=== PATIENT | female | born 1975 | race Asian ===

== ENCOUNTER 2017-03-15 14:58 | Emergency (ER) | payer OTHER ==
[~2017-03-15] VITALS: Ht 162.6 cm; Wt 77.1 kg
[2017-03-15 15:03] VITALS: BP 125/80
[2017-03-15] MEDS ORDERED: LEVOTHYROXINE50 MCG PO (15:23)
--- NOTE | 2017-03-15 15:24 | ED UPPER/LOWER EXTREMITY COMPL ---
History of Present Illness General Chief Complaint: Plantar Puncture Wound Stated Complaint: BUDDY NAIL IN LFT FOOT Source: patient Exam Limitations: no limitations Vital Signs & Intake/Output Vital Signs & Intake/Output Vital Signs Date Time Temp Pulse Resp B/P B/P Pulse O2 O2 Flow FiO2 Mean Ox Delivery Rate 03/15 1503 97.5 90 15 125/80 100 Room Air Room Air Allergies Coded Allergies: No Known Allergies (03/15/17) Reconcile Medications Levothyroxine Sodium 50 MCG TABLET 1 TAB PO DAILY AC THYRIOD (Reported) Triage Note: PT TO ED FOR L FOOT PAIN S/P STEPPING ON BUDDY NAIL. PT REMOVED NAIL AND CLEANED IT WITH ANITSEPTIC AND HYDROGEN PEROXIDE. PT UNSURE OF LAST TETANUS SHOT. Triage Nurses Notes Reviewed? yes Onset: Abrupt Duration: constant Timing: single episode today Severity: mild Severity Numbers: 3 : No Patient currently breastfeeds: No HPI: Patient is a 41-year-old female who presents to emergency room with concerns of stepping on a nail today which patient was barefoot in her house where the nail was completely removed no fracture has occurred. Patient's tetanus is unknown. Past History Travel History Traveled to [place] past 21 day No Medical History Any Pertinent Medical History? see below for history Cardiovascular: hypertension Endocrine: hypothyroid Blood Disorders: vitamin d deficiency VITAMIN B DEFICIENCY Cancer(s): NONE SENIOR SCRUM MASTER/Reproductive: NONE Surgical History Surgical History: non-contributory Psychosocial History What is your primary language Salvadorean Tobacco Use: Never used ETOH Use: denies use Illicit Drug Use: denies illicit drug use Family History Hx Contributory? No Review of Systems Review of Systems Constitutional: Reports: no symptoms. EENTM: Reports: no symptoms. Respiratory: Reports: no symptoms. Cardiovascular: Reports: no symptoms. Gastrointestinal/Abdominal: Reports: no symptoms. Genitourinary: Reports: no symptoms. Musculoskeletal: Reports: see HPI. Skin: Reports: see HPI. Neurological/Psychological: Reports: no symptoms. Hematologic/Endocrine: Reports: no symptoms. Immunological: Reports: no symptoms. All Other Systems: Reviewed and Negative Physical Exam Physical Exam General Appearance: no apparent distress, alert, comfortable Head: atraumatic Eyes: Bilateral: normal appearance. Neck: normal inspection Peripheral Pulses: 2+ dorsalis pedis (R), 2+ dorsalis pedis (L) Neurologic/Tendon: normal sensation, normal motor functions, normal tendon functions, responds to pain, no evidence tendon injury Skin: normal color, warm/dry Comments: Well-developed well-nourished no apparent distress. HEENT: Atraumatic, extraocular motion intact Neck: Supple, no lymphadenopathy Back: Nontender Respiratory: No respiratory distress Extremities: No edema, full range of motion Neuro: Alert and oriented x3 Psych: Mood affect normal, normal memory normal judgment. Diagram Feet Bottom 1) Noted minimal 2 mm puncture wound no active bleeding no surrounding swelling no surrounding erythema no active bleeding not to discharge no tenderness Progress Differential Diagnosis: arterial insufficiency, compartment syndrome, contusion, dislocation, DVT, fracture, gout, septic arthritis, sprain, tendon injury Plan of Care: Orders Procedure Date/time Status XRY-HEEL, LEFT 03/15 1611 Active X-rays were unremarkable for foreign body or fracture. Wound was cleaned with peroxide and water and bandage was applied (DAV SALMERON,GYPSY) Diagnostic Imaging: Viewed by Me: Radiology Read. Radiology Impression: no acute abnormality, no fracture Comments: PATIENT: MANJIT SQUIRES PRESENT AGE: 41 PATIENT ACCOUNT NO: [id number] : 77 LOCATION: [facility] ORDERING PHYSICIAN: GYPSY SALMERON SERVICE DATE: 03/15/17 EXAM TYPE: RAD - XRY-HEEL, LEFT EXAMINATION: XR CALCANEUS, LEFT CLINICAL INFORMATION: Puncture wound. Rule out foreign body. COMPARISON: None TECHNIQUE: Lateral and axial views of the left calcaneus were obtained. FINDINGS: No radiopaque foreign body. No air in the soft tissue. There is a large plantar calcaneal spur measuring about 1 cm. IMPRESSION: No radiopaque foreign body of the heel. DICTATED BY: RICARDO GHOSH MD DATE/TIME DICTATED:03/15/171629 ORCHESTRATOR:JAVIER Departure Departure Disposition: HOME OR SELF CARE Condition: Stable Clinical Impression Primary Impression: Puncture wound of left heel Referrals: LAVELL WATTS MD (PCP/Family) Additional Instructions: As discussed if you note signs of infection redness, pain, swelling, discharge or if symptoms worsen return to the emergency room. Follow-up with your primary care doctor as directed. Departure Forms: Customer Survey General Discharge Information
--- NOTE | 2017-03-15 16:34 | RADIOLOGY REPORT ---
EXAMINATION: XR CALCANEUS, LEFT CLINICAL INFORMATION: Puncture wound. Rule out foreign body. COMPARISON: None TECHNIQUE: Lateral and axial views of the left calcaneus were obtained. FINDINGS: No radiopaque foreign body. No air in the soft tissue. There is a large plantar calcaneal spur measuring about 1 cm. IMPRESSION: No radiopaque foreign body of the heel.
== END 2017-03-15 17:00 ==
LOC: ERH 14:58
DX: S91.332A Puncture wound without foreign body, left foot, initial encounter (principal); W45.0XXA Nail entering through skin, initial encounter; Y92.009 Unspecified place in unspecified non-institutional (private) residence as the place of occurrence of the external cause; Y93.9 Activity, unspecified
CPT/HCPCS: 73650-LT; 90471; 90714